=== PATIENT | female | born 1975 ===

== ENCOUNTER 2022-08-26 10:47 | Outpatient (OUT) | payer OTHER, SELFPAY ==
--- NOTE | 2022-08-26 11:10 | XR_ITS ---
The [address] [address] Patient Name: RAYMOND LOWERY MRN: [id number] date: 1975 Sex: F Assigned Patient Location: [facility] Current Patient Location: [facility] Accession/Order Number: [id number] Exam Date: 08/26/2022 11:10 Report Date: 08/26/2022 18:49 At the request of: NOEMY LÓPEZ Procedure: XR ankle RT min 3V PROCEDURE: XR foot RT min 3V, XR ankle RT min 3V COMPARISON: None. HISTORY: RIGHT FOOT PAIN FINDINGS: BONES:No acute fracture or dislocation of the foot or ankle. Contour deformity medial head of first metatarsal possibly representing shave osteotomy versus degenerative changes SOFT TISSUES:Soft tissue swelling first metatarsal-phalangeal joint EFFUSION:None visible. OTHER: Negative. XR/XR ankle RT min 3V IMPRESSION: No acute abnormality of the foot or ankle Electronically authenticated by: VELMA MITCHELL Date: 08/26/2022 18:49
--- NOTE | 2022-08-26 11:10 | XR_ITS ---
The [address] [address] Patient Name: RAYMOND LOWERY MRN: [id number] date: 1975 Sex: F Assigned Patient Location: [facility] Current Patient Location: [facility] Accession/Order Number: [id number] Exam Date: 08/26/2022 11:10 Report Date: 08/26/2022 18:49 At the request of: NOEMY LÓPEZ Procedure: XR foot RT min 3V PROCEDURE: XR foot RT min 3V, XR ankle RT min 3V COMPARISON: None. HISTORY: RIGHT FOOT PAIN FINDINGS: BONES:No acute fracture or dislocation of the foot or ankle. Contour deformity medial head of first metatarsal possibly representing shave osteotomy versus degenerative changes SOFT TISSUES:Soft tissue swelling first metatarsal-phalangeal joint EFFUSION:None visible. OTHER: Negative. XR/XR foot RT min 3V IMPRESSION: No acute abnormality of the foot or ankle Electronically authenticated by: VELMA MITCHELL Date: 08/26/2022 18:49
== END 2022-08-26 10:48 | disposition home or self-care (01) ==
LOC: RAD 10:48
PROVIDERS: Visit Provider Podiatrist Foot & Ankle Surgery
DX: M25.571 Pain in right ankle and joints of right foot (principal)
CPT/HCPCS: 73610; 73630

== ENCOUNTER 2022-08-30 09:30 | Outpatient (OUT) | payer OTHER, SELFPAY ==
--- NOTE | 2022-08-30 09:38 | CT_ITS ---
The [address] [address] Patient Name: RAYMOND LOWERY MRN: [id number] date: 1975 Sex: F Assigned Patient Location: CT Current Patient Location: Accession/Order Number: [id number] Exam Date: 08/30/2022 09:40 Report Date: 09/01/2022 06:54 At the request of: NOEMY LÓPEZ Procedure: CT foot RT wo con EXAMINATION: CT foot RT wo con HISTORY: Hallux rigidus, right foot, Bunionette of right foot COMPARISON: XR foot right 08/26/2022 TECHNIQUE: Multi-planar CT images were created without and/or with IV contrast according to examination type. Dose reduction techniques were achieved by using automated exposure control and/or adjustment of mA and/or kV according to patient size and/or use of iterative reconstruction technique. FINDINGS: BONES: Bone cysts within inferior aspect of head of first metatarsal. No fracture, dislocation, or suspicious bone lesion. First metatarsal bunionectomy. Plantar arch appears maintained. SOFT TISSUES: Mild soft tissue thickening medial to the head of the first metatarsal and lateral to the head of the fifth metatarsal. EFFUSION: None visible. OTHER: Negative. CT/CT foot RT wo con IMPRESSION: 1. No acute bone abnormality. 2. Surgical changes from prior bunionectomy and incidental bone cyst within first metatarsal. 3. Soft tissue thickening lateral to head of the fifth metatarsal consistent with patient history. Electronically authenticated by: YOUSIF MALLORY Date: 09/01/2022 06:54
== END 2022-08-30 09:31 | disposition home or self-care (01) ==
PROVIDERS: Visit Provider Podiatrist Foot & Ankle Surgery
DX: M20.21 Hallux rigidus, right foot (principal); M21.621 Bunionette of right foot
CPT/HCPCS: 73700